=== PATIENT | male | born 1980 | race African-American/Black ===

== ENCOUNTER 2018-11-25 18:39 | Emergency (ER) | payer BC ==
[~2018-11-25] VITALS: Ht 182.9 cm; Wt 78.1 kg
[2018-11-25 18:43] VITALS: Ht 182.9 cm; Wt 78.1 kg
[2018-11-25] MEDS ORDERED: IBUPROFEN 800 MG TAB PO ONE (19:00)
[2018-11-25] MEDS ORDERED: LIDOCAINE 1% (MPF) 5 ML VIAL INFIL ONE (19:30)
[2018-11-25] MEDS ORDERED: IBUP-1542 PO (20:18)
--- NOTE | 2018-11-25 20:18 | ERD ---
ER Documentation Chief Complaint Chief Complaint PT reports he cut R hand between middle and index finger with glass HPI 38-year-old male presents to ED after suffering from a laceration on his right hand between his second and third digit. He states that he was working and a piece of glass cut his hand. He denies any fevers, chills and states that he is up-to-date on his tetanus vaccine. He reports 10 out of 10 constant pain that he describes as throbbing. He denies any other previous injury to the hand. He denies any other cuts anywhere else in his body. ROS All systems reviewed and are negative except as per history of present illness. Medications Home Meds Active Scripts Ibuprofen* (Motrin*) 600 Mg Tab, 600 MG PO Q6H PRN for PAIN AND OR ELEVATED TEMP, #30 TAB Prov:COLTEN RIOS PA-C 11/25/18 Allergies Allergies: Coded Allergies: No Known Allergy (Unverified , 11/25/18) PMhx/Soc History of Surgery: Yes (Right shoulder) Anesthesia Reaction: No Hx Neurological Disorder: No Hx Respiratory Disorders: No Hx Cardiac Disorders: No Hx Psychiatric Problems: No Hx Miscellaneous Medical Probl: No Hx Alcohol Use: Yes (Former) Hx Substance Use: Yes (Marijuana-last use July 2018) Hx Tobacco Use: Yes Smoking Status: Current every day smoker FmHx Family History: No diabetes Physical Exam Vitals Vital Signs Date Temp Pulse Resp B/P (MAP) Pulse Ox O2 O2 Flow FiO2 Time Delivery Rate 11/25/18 98.9 74 16 120/67 100 18:43 (84) Physical Exam Const: No acute distress Head: Atraumatic Eyes: Normal Conjunctiva ENT: Normal External Ears, Nose and Mouth. Neck: Full range of motion. No meningismus. Resp: Clear to auscultation bilaterally Cardio: Regular rate and rhythm, no murmurs Abd: Soft, non tender, non distended. Normal bowel sounds Skin: No petechiae or rashes Back: No midline or flank tenderness Ext: Right hand: Half inch laceration on the dorsal aspect of the right hand. good 2+ pulses, good rom, good sensation, no tendon deficits Neur: Awake and alert Psych: Normal Mood and Affect Results 24 hrs Current Medications Medications Dose Sig/Perla Start Time Status Last (Trade) Ordered Route PRN Stop Time Admin Dose Reason Admin Ibuprofen 800 mg ONCE ONCE 11/25/18 DC 11/25/18 (Motrin) PO 19:00 11/25/18 19:03 19:01 Lidocaine 5 ml ONCE ONCE 11/25/18 DC (Xylocaine INFIL 19:30 11/25/18 1% (Mpf)) 19:31 Procedures/MDM ED COURSE: The patient was stable throughout ED course. I kept the patient informed of laboratory and diagnostic imaging results throughout the ED course. DIAGNOSTIC IMAGING: Read by radiologist. PROCEDURE: XR Hand. CLINICAL INDICATION: Laceration. TECHNIQUE: Right hand, Three views. COMPARISON: None. FINDINGS: There is no acute fracture or dislocation. Osseous alignment appears maintained. There is no significant joint space narrowing. There are no significant degenerative changes. Ulnar negative variance seen. No radiopaque foreign body seen. IMPRESSION: No acute fracture or dislocation of the right hand. No radiopaque foreign body seen. RPTAT: GG Jw Obrien Physician Date Time Electronically viewed and signed by Jw Obrien Physician on 11/25/2018 19:50 PROCEDURES: Laceration Repair by me: Colten Rhodes Anesthesia: 1% lidocaine locally Location: right dorsal hand, on top of 2nd and 3rd digit Tendon/Joint/Nerves: No injury Foreign body: None detected after copious irrigation and exploration, and xray Technique: Simple Interrupted Sutures, 2 placed (4-0) Complexity: No subcutaneous sutures/mucosal repair/edge excision Post Closure Length: 3 cm Patient's bleeding was easily controlled in the department and there is no indication of anemia. No evidence of compartment syndrome, neurologic injury, vascular injury, open joint, tendon laceration, or foreign body. Patient is appropriate for outpatient follow up. 48 hour wound check. Scar minimization instructions given. MEDICATIONS GIVEN: Motrin Patient tolerated medication well with no adverse reactions. Patient reported improvement in pain. MEDICAL DECISION MAKING: Patient is a 38 year old male presenting s/p laceration on his right hand on the dorsal aspect on top of the 2nd / 3rd digit. Bleeding was controlled prior to ED visit. He reports pain 10/10. Motrin was given in the ED stay which helped reduce his pain. Xray was done in order to r/o FB which was negative. Irrigation was performed. 2 4-0 sutures were placed by myself without any complications. Pt tolerated the procedure well and was told to report back to ED in 2 days for recheck. I have low suspicion for tendon injury, fracture, septic joint, dislocation. Vital signs were reviewed. Patient is afebrile. Patient was not hypoxic. Patient was hemodynamically stable. Patient was told to follow up with primary care for further care and management. PRESCRIPTION: motrin DISCHARGE: At this time, patient is stable for discharge and outpatient management. I have instructed the patient to follow-up with his/her primary care physician in 1-2 days. I have discussed with the patient the possibility of needing to see a specialist for further workup and imaging studies if symptoms persist. I have instructed the patient to promptly return to the ER for any new or worsening symptoms including increased pain, fever, nausea, vomiting, weakness or LOC. The patient expressed understanding of and agreement with this plan. All questions were answered. Home care instructions were provided. Disclaimer: Inadvertent spelling and grammatical errors are likely due to EHR/dictation software use and do not reflect on the overall quality of patient care. Also, please note that the electronic time recorded on this note does not necessarily reflect the actual time of the patient encounter. Departure Diagnosis: Primary Impression: Laceration Condition: Fair Patient Instructions: Laceration, Hand Referrals: [facility] YOU HAVE RECEIVED A MEDICAL SCREENING EXAM AND THE RESULTS INDICATE THAT YOU DO NOT HAVE A CONDITION THAT REQUIRES URGENT TREATMENT IN THE EMERGENCY DEPARTMENT. FURTHER EVALUATION AND TREATMENT OF YOUR CONDITION CAN WAIT UNTIL YOU ARE SEEN IN YOUR DOCTORS OFFICE WITHIN THE NEXT 1-2 DAYS. IT IS YOUR RESPONSIBILITY TO MAKE AN APPOINTMENT FOR FOLOW-UP CARE. IF YOU HAVE A PRIMARY DOCTOR --you should call your primary doctor and schedule an appointment IF YOU DO NOT HAVE A PRIMARY DOCTOR YOU CAN CALL OUR PHYSICIAN REFERRAL HOTLINE AT IF YOU CAN NOT AFFORD TO SEE A PHYSICIAN YOU CAN CHOSE FROM THE FOLLOWING [facility] [address] [facility] [address] [facility]. [facility] [address] [facility] [address] [facility] [address] [facility]. [facility] [address] [facility]. [facility] YOU HAVE RECEIVED A MEDICAL SCREENING EXAM AND THE RESULTS INDICATE THAT YOU DO NOT HAVE A CONDITION THAT REQUIRES URGENT TREATMENT IN THE EMERGENCY DEPARTMENT. FURTHER EVALUATION AND TREATMENT OF YOUR CONDITION CAN WAIT UNTIL YOU ARE SEEN IN YOUR DOCTORS OFFICE WITHIN THE NEXT 1-2 DAYS. IT IS YOUR RESPONSIBILITY TO MAKE AN APPOINTMENT FOR FOLOW-UP CARE. IF YOU HAVE A PRIMARY DOCTOR --you should call your primary doctor and schedule and appointment IF YOU DO NOT HAVE A PRIMARY DOCTOR YOU CAN CALL OUR PHYSICIAN REFERRAL HOTLINE AT . IF YOU CAN NOT AFFORD TO SEE A PHYSICIAN YOU CAN CHOSE FROM THE FOLLOWING [facility]: [facility] [address] [place] [address] [facility] [address] [place] [address] [facility] [address] [place] [address] Additional Instructions: Return back to ED in 2 days for recheck. keep dry Call your primary care doctor TOMORROW for an appointment during the next 1-2 days.See the doctor sooner or return here if your condition worsens before your appointment time. COLTEN RIOS PA-C Nov 25, 2018 20:18
[2018-11-25 20:31] VITALS: BP 116/73; PULSE 56; RESP 18
== END 2018-11-25 20:32 | disposition home or self-care (01) ==
LOC: FTE 18:39
DX: S61.210A Laceration without foreign body of right index finger without damage to nail, initial encounter (principal); S61.212A Laceration without foreign body of right middle finger without damage to nail, initial encounter; F17.210 Nicotine dependence, cigarettes, uncomplicated; W25.XXXA Contact with sharp glass, initial encounter; Y92.89 Other specified places as the place of occurrence of the external cause